=== PATIENT | male | born 1965 | race Caucasian/White ===

== ENCOUNTER 2020-12-15 19:25 | Emergency (ER) | payer SELFPAY ==
[~2020-12-15] VITALS: Ht 182.9 cm; Wt 145.2 kg
== END 2020-12-16 02:59 | disposition home or self-care (01) ==
LOC: ER 19:25
DX: T78.40XA Allergy, unspecified, initial encounter (principal); L29.9 Pruritus, unspecified; R22.0 Localized swelling, mass and lump, head
CPT/HCPCS: 99283